=== PATIENT | female | born 1975 | race Caucasian/White ===

== ENCOUNTER 2017-03-24 13:18 | Outpatient (CLI) | payer OTHER ==
--- NOTE | 2017-03-31 17:59 | Mammography Report ---
DIGITAL SCREENING MAMMOGRAM: 03/24/2017 CLINICAL INDICATION: A 41-year-old for baseline. TECHNIQUE: Routine CC and MLO projections as well as bilateral laterally exaggerated craniocaudal vi ews were obtained of the breasts. The breasts demonstrate heterogeneously dense fibroglandular parenchyma bilaterally. No suspicious m asses, clustered microcalcifications, or regions of architectural distortion are identified. IMPRESSION: NEGATIVE EXAMINATION. RECOMMENDATION: ROUTINE ANNUAL SCREENING UNLESS OTHERWISE CLINICALLY INDICATED. BIRADS CATEGORY: 1, NEGATIVE. STANDARD QUALIFYING STATEMENTS 1. This examination was reviewed with the aid of Computed-Aided Detection (CAD). 2. A negative or benign imaging report should not delay biopsy if clinically suspicious findings are present. Consider surgical consultation if warranted. More than 5% of cancers are not identified b y imaging. 3. Dense breasts may obscure an underlying neoplasm. JOB #: [id number] EXT JOB #:[id number]
== END 2017-03-24 13:19 | disposition home or self-care (01) ==
LOC: DI.S 13:18
PROVIDERS: ATTEND Physician Assistant
DX: Z12.31 Encounter for screening mammogram for malignant neoplasm of breast (principal)
CPT/HCPCS: 77067

== ENCOUNTER 2019-06-04 19:45 | Outpatient (CLI) | payer OTHER | END 2019-06-04 19:46 | disposition EMS.NT | LOC: EMS 19:45 | PROVIDERS: ATTEND Surgery | DX: Z04.1 Encounter for examination and observation following transport accident (principal) ==

== ENCOUNTER 2019-11-24 19:48 | Outpatient (CLI) | payer OTHER | END 2019-11-24 19:49 | disposition home or self-care (01) | LOC: COV 19:48 | PROVIDERS: ATTEND Family Medicine | DX: R06.02 Shortness of breath (principal); M79.10 Myalgia, unspecified site; R53.83 Other fatigue; R68.83 Chills (without fever); R09.81 Nasal congestion; Z20.828 Contact with and (suspected) exposure to other viral communicable diseases ==